=== PATIENT | male | born 1955 | race Caucasian/White ===

== ENCOUNTER 2019-09-23 12:15 | Outpatient (CLI) | payer MEDICARE, BC ==
[~2019-09-23 12:15] MED LIST: 0.9 % SODIUM CHLORIDE PF 10 ML VIAL IJ ONE; BUPIVACAINE HCL 0.25% (2.5MG/ML) PF 10ML VIAL IV ONE; IOHEXOL 300 MG/ML BOTTLE 50 ML ONE; Lidocaine 1% 5ml 10 MG/ML VIAL ONE; methylPREDNISolone ACETATE 80 MG/ML VIAL IM ONE
== END 2019-09-23 14:07 ==
LOC: OUT 12:15
DX: M51.26 Other intervertebral disc displacement, lumbar region (principal); M51.36 Other intervertebral disc degeneration, lumbar region
CPT/HCPCS: 64483; J1040; J3490